=== PATIENT | male | born 1990 | race Caucasian/White ===

== ENCOUNTER 2021-06-03 08:18 | Outpatient (CLI) | payer OTHER, SELFPAY ==
--- NOTE | 2021-06-03 11:46 | WPDNEUROLOGY ---
Neurology EEG Report General Information Date of Study: 06/03/21 TEST eeg DIAGNOSIS Seizures CONDITION OF RECORDING awake drowsy and sleep EEG NUMBER [id number] CLINICAL HISTORY patient reported a couple of weeks ago his face began twitching and then lost consciousness. Denies any previous history of losing consciousness. Denies loss of bladder or bowel control. EEG DESCRIPTION basic resting occipital frequency consists of low-voltage 8 to 10 hertz per 2nd alpha admixed with large amount of low-voltage 15 to 18 hertz per 2nd beta. During drowsiness low-voltage beta activity seen diffusely admixed with waxing and waning posterior alpha rhythm. Bilateral symmetrical sleep activity seen during sleep. Photic stimulation produced poor drive. Hyperventilation not done. Non paroxysmal. Nonfocal. Nonlateralizing. IMPRESSION No significant abnormalities noted
== END 2021-06-03 08:19 | disposition home or self-care (01) ==
PROVIDERS: PCP Family Medicine
DX: R56.9 Unspecified convulsions (principal)
CPT/HCPCS: 95816

== ENCOUNTER 2024-01-19 18:17 | Inpatient (IN) | payer OTHER, SELFPAY ==
[2024-01-19] VITALS (19 sets, daily range): BP systolic 96–139; BP diastolic 56–90; PULSE 98–140; RESP 14–34; TEMP 37.3–40.5; O2SAT 89–100; BMI 31.7
--- NOTE | ~2024-01-19 | CT_ITS ---
CT brain wo con Ordering provider: Julio Hurt MD History: 33 years Male with . seizure/cardiac arrest, r/o bleed . Comparison: None. Technique: CT of the head without contrast. Radiation reduction technique utilized. DLP 908 mGy. FINDINGS: Motion and beam hardening Artifacts are seen in the posterior fossa area BRAIN PARENCHYMA AND CSF SPACES: No midline shift, mass effect or hemorrhage. The brain parenchyma a nd CSF spaces are otherwise normal. VISUALIZED PARANASAL SINUSES: Well aerated. MASTOIDS: Well aerated. BONES: The bones appear intact. SOFT TISSUES: Visualized nasopharynx is normal. Superficial soft tissues are normal. IMPRESSION: No acute intracranial findings. Reviewed, dictated and finalized at location A.
--- NOTE | ~2024-01-19 | XR_ITS ---
XR chest ET placement Ordering provider: Julio Hurt MD History: 33 years Male with . ET/OG . Comparison: None. FINDINGS: MEDIASTINUM: The cardiac silhouette is slightly enlarged. Endotracheal tube is seen with the tip abov e the tanya by about 1.6 cm. Slight retraction advised by about 2 cm.. Congestive tristen. Nasogastric tube with the tip in the stomach is noted. LUNGS: No effusion or pneumothorax. Bilateral prominent markings with patchy opacities suggestive of pneumonia. Clinical correlation advised. Underlying pulmonary edema is not excluded. OTHER: No free air under the diaphragm. IMPRESSION: Endotracheal tube to be retracted by about 2 cm. Bilateral patchy opacities suggestive of pneumonia. Underlying pulmonary edema is not excluded. Reviewed, dictated and finalized at location A.
--- NOTE | 2024-01-19 18:27 | ED.CPR ---
HPI - CPR General Chief Complaint: Cardiac Arrest/CPR Stated Complaint: seizure, post arrest Time Seen by Provider: 01/19/24 18:26 History of Present Illness HPI narrative: Patient is a 33-year-old male who presents ER after having a cardiac arrest at home. Patient had EMS contacted by his family earlier in the day for hallucinations. At that time he is oriented x4 in refused EMS transport. apparently patient was becoming more combative at home was reaching for knives so the family called EMS again. While they were there patient they thought initially was having seizure in collapsed. Patient began code. ACLS protocol initiated. Defibrillation x1 for VFib. Patient then in PA. Return to spontaneous circulation after 8 minutes. Patient then lost pulses again just prior to arrival it Gabe. ACLS protocol started again. According family patient is an alcoholic. He had been weaning himself of alcohol. 3 days ago he drank a 5th of hard liquor. Since then he has been having shaking and vomiting. Patient had been hallucinating with at fever or outside his home today and had been becoming increasingly more agitated. Related Data Home Medications Medication Instructions Recorded Confirmed aripiprazole 20 mg tablet (Abilify) 20 mg PO QHS 06/28/21 12/27/21 sertraline 100 mg tablet 150 mg PO DAILY 06/28/21 12/27/21 bupropion HCl 150 mg 24 hr tablet, 150 mg PO DAILY 12/27/21 12/27/21 extended release levetiracetam 500 mg tablet 500 mg PO BID 12/27/21 12/27/21 (Keppra) methylphenidate HCl 20 mg tablet 20 mg PO DAILY 12/27/21 12/27/21 Allergies Allergy/AdvReac Type Severity Reaction Status Date / Time No Known Allergies Allergy Verified 12/27/21 08:39 Review of Systems Review of Systems: ROS unobtainable: Yes unobtainable due to medical condition PMFSH Past Medical History Medical History ADHD Depression with anxiety Essential (primary) hypertension Gout Family History Family History Mother Hypertension Depression Anxiety Social History Social History Smoking status: Former smoker Tobacco type: cigarettes Smoking end date: 09/06/15 Alcohol intake: current Substance use: current Substance use type: marijuana Living arrangements: alone Occupation/Education: occupation Gender identity (if verbalized by the patient): Male Exam Narrative: GENERAL: chronically ill-appearing, obese, agonal breathing without spontaneous movement. HEAD: Normocephalic, atraumatic. EYES: Pupils equal and dilated the slightly reactive to light. ENT: Mucous membranes moist. Large amount of emesis and posterior oropharynx that was suctioned out heard CHEST: Agonal respirations. Clear lungs bilaterally. HEART: Regular rate and rhythm. Normal peripheral pulses. ABDOMEN: Soft, nondistended, hepatomegaly palpated. EXTREMITIES: Bruising to lower extremities at the knees and proximal thighs. No spontaneous movements. No deformity.. left humerus IO. SKIN: Cool, dry, mottled. NEURO: GCS 3. Course Course Emergency Course: 1826: ROSC at 1819. EKG with concerns for STEMI. 1936: patient taken to the cardiac can labeler. He has been given heparin, aspirin, Tylenol. additionally I have ordered thigh min for suspicion of delirium tremens. He is receiving 2 L IV fluid bolus. Oral and IV potassium have been ordered for correction of his hypokalemia. I have updated the checker bak[employer] products as well as the hospitalist should patient remain at [facility] after his cardiac catheterization which I suspect he will. I have updated family on the nature of his illness as well as his critical lab values including the potassium, creatinine, liver function tests, and troponin. I have escorted them to the ICU waiting room. Vital Signs Vital signs: Vital Signs Oxygen Delivery Bag Valve Mask 01/19/24 18:16 Temperature 104.9 F H 01/19/24 19:30 Pulse Rate 128 H 01/19/24 19:30 Respiratory Rate 28 H 01/19/24 19:30 Blood Pressure 127/59 L 01/19/24 19:30 Pulse Oximetry 98 01/19/24 19:30 Oxygen Delivery Mechanical Ventilation 01/19/24 19:25 Fraction of Inspired Oxygen 100 01/19/24 18:20 MDM - Cardiac Arrest/CPR Lab Data 01/19/24 18:35 01/19/24 18:34 Labs: Lab Results 01/19/24 01/19/24 Range/Units 18:34 18:35 WBC 25.1 H (4.5-10.0) K/mm3 RBC 4.37 L (4.6-6.20) M/mm3 Hgb 15.7 (14.0-18.0) g/dL Hct 48.8 (42.0-52.0) % MCV 111.7 H (80-100) fl MCH 35.9 H (26-34) pg MCHC 32.2 (32-36) g/dl RDW 16.1 H (11.5-14.5) % Plt Count 146 L (150-375) k/mm3 MPV 12.9 H (7.4-10.4) fl Immature Gran % (Auto) Not Reportable Neut % (Auto) Not Reportable Lymph % (Auto) Not Reportable [place] % (Auto) Not Reportable Eos % (Auto) Not Reportable Baso % (Auto) Not Reportable Lymph # (Auto) Not Reportable [place] # (Auto) Not Reportable Eos # (Auto) Not Reportable Baso # (Auto) Not Reportable Abs Immat Gran (auto) Not Reportable Absolute Neuts (auto) Not Reportable Absolute Nucleated RBC Not Reportable Total Counted 100 Neutrophils % (Manual) 73 (46-73) % Band Neutrophils % 5 (0-6) % Lymphocytes % (Manual) 15.0 L (18-44) % Monocytes % (Manual) 5 (3-9) % Metamyelocytes % 2 % Nucleated RBC % Not Reportable Abs Neuts (Manual) 19.57 H (1.3-6.7) K/mm3 Abs Lymphs (Manual) 3.76 (1.1-4.5) K/mm3 Abs Monocytes (Manual) 1.25 H (0.1-0.90) K/mm3 Platelet Estimate Slightly decreased (Adequate) Anisocytosis 1+ Macrocytosis 2+ (NORMAL) Schistocytes None seen PT 19.5 H (11.1-14.7) Seconds INR 1.6 APTT 51.0 H (22.3-36.8) Seconds Sodium 127 L (137-145) mmol/L Potassium 2.1 L* (3.4-5.0) mmol/L Chloride 55 L (98-107) mmol/L Carbon Dioxide 12 L (22-30) mmol/L Anion Gap 60 H (4-12) mmol/L BUN 9 (9-20) mg/dL Creatinine 2.00 H (0.7-1.3) mg/dL Estim Creat Clear Calc 60 ml/min Estimated GFR 39 L (59 - ) Glucose 84 (65-110) mg/dL Calcium 7.3 L (8.4-10.2) mg/dL Magnesium 1.3 L (1.6-2.3) mg/dL Total Bilirubin 7.5 H (0.2-1.3) mg/dL AST 492 H (17-59) U/L ALT 113 H (6-50) U/L Alkaline Phosphatase 196 H (38-126) U/L Troponin I 0.113 H* (0.000-0.034) ng/mL Total Protein 8.0 (6.3-8.2) g/dL Albumin 4.9 (3.5-5.1) g/dL Triglycerides 350 H (<150) mg/dL Cholesterol 155 (0-200) mg/dL LDL Cholesterol Direct 101 mg/dL HDL Direct 21 mg/dL Ethyl Alcohol < 10 (<10) mg/dL Blood Type O Positive Antibody Screen Negative Imaging Data Radiologist's impression: ITS Impressions Chest X-Ray 01/19/24 18:46 IMPRESSION: Endotracheal tube to be retracted by about 2 cm. Bilateral patchy opacities suggestive of pneumonia. Underlying pulmonary edema is not excluded. Head CT 01/19/24 19:18 IMPRESSION: No acute intracranial findings. ECG Data EKG #1: ECG completion date: 01/19/24 EKG Interpretation: tachycardia, sinus rhythm, ST elevation, RBBB and normal QT Critical Care Time Critical Care Time Critical Care Time: Yes Total Critical Care Time: 45 Discharge Plan Discharge Clinical Impression: ST elevation (STEMI) myocardial infarction, Delirium tremens, Acute hypokalemia Patient Disposition: Still a Patient Condition: Critical
--- NOTE | 2024-01-19 18:31 | ECG_ITS ---
Test Date: 2024-01-19 18:25:04 Measurements Intervals [place] Rate: 137 P: -72 MO: 98 QRS: -58 QRSD: 147 T: 23 QT: 389 QTc: 589 Interpretive Statements sinus tachycardia versus atrial tachycardia RIGHT BUNDLE BRANCH BLOCK [120+ ms QRS DURATION, UPRIGHT V1, 40+ ms S IN I/aVL/V4/V5/V6] LEFT ANTERIOR FASCICULAR BLOCK [QRS AXIS <= -45, QR IN I, RS IN II] No previous ECG available for comparison Electronically Signed On 01-20-2024 12:59:20 CDT by Curt Ventura M.D.
[2024-01-19] MEDS: PROPOFOL IV EMULSION 200 MG/20 ML VIAL 50 MG IV PUSH (18:38)
[2024-01-19] MEDS: ASPIRIN 81 MG CHEWABLE TABLET 324 MG PO (18:38)
[2024-01-19 18:42] LABS: Hematocrit 48.8 % (42.0-52.0); Hemoglobin 15.7 g/dL (14.0-18.0); Mean Corpuscular HGB Conc 32.2 g/dl (32-36); Mean Corpuscular Hemoglobin 35.9 pg (26-34); Mean Corpuscular Volume 111.7 fl (80-100); Mean Platelet Volume 12.9 fl (7.4-10.4); Platelet Count Result 146 k/mm3 (150-375); Red Blood Count 4.37 M/mm3 (4.6-6.20); Red Cell Distribution Width 16.1 % (11.5-14.5); White Blood Count 25.1 K/mm3 (4.5-10.0)
[2024-01-19] MEDS: SODIUM CHLORIDE 0.9% IV 1,000 ML 999 ML IV CONT ×2 (18:45)
[2024-01-19] MEDS: PROPOFOL IV EMULSION 100 ML 3.18 MG IV CONT (18:45)
[2024-01-19] MEDS: ACETAMINOPHEN 650 MG SUPPOSITORY RECTAL (18:50)
[2024-01-19 18:52] LABS: INR 1.6; Prothrombin Time 19.5 Seconds (11.1-14.7)
[2024-01-19 19:00] LABS: Albumin Level 4.9 g/dL (3.5-5.1); Alkaline Phosphatase 196 U/L (38-126); Anion Gap 60 mmol/L (4-12); Aspartate Amino Transferase 492 U/L (17-59); Bilirubin,Total 7.5 mg/dL (0.2-1.3); Blood Urea Nitrogen 9 mg/dL (9-20); Calcium 7.3 mg/dL (8.4-10.2); Carbon Dioxide 12 mmol/L (22-30); Chloride 55 mmol/L (98-107); Cholesterol 155 mg/dL (0-200); Estimated CRCL calculation 60 ml/min; Estimated Glomerular Filt Rate 39; Glucose 84 mg/dL (65-110); HDL Direct 21 mg/dL; Potassium 2.1 mmol/L (3.4-5.0); Sodium 127 mmol/L (137-145); Triglycerides 350 mg/dL (<150)
[2024-01-19] MEDS: HEPARIN SODIUM 5,000 UNITS/ML VIAL 4000 UNITS IV PUSH (19:00)
[2024-01-19 19:03] LABS: LDL Cholesterol Direct 101 mg/dL
[2024-01-19 19:09] LABS: Troponin I 0.113 ng/mL (0.000-0.034)
--- NOTE | 2024-01-19 19:11 | PM.IMHP ---
H&P: HPI History of Present Illness Date/Time: Date of service 01/19/24 19:11 Chief Complaint: cardiac arrest Narrative: Patient is a 33-year-old male who presents ER after having a cardiac arrest at home. Patient had EMS contacted by his family earlier in the day for hallucinations. At that time he is oriented x4 in refused EMS transport. apparently patient was becoming more combative at home was reaching for knives so the family called EMS again. While they were there patient they thought initially was having seizure in collapsed. Patient began code. ACLS protocol initiated. Defibrillation x1 for VFib. Patient then in [place]. Return to spontaneous circulation after 8 minutes. Patient then lost pulses again just prior to arrival it Gabe. ACLS protocol started again. According family patient is an alcoholic. He had been weaning himself of alcohol. 3 days ago he drank a 5th of hard liquor. Since then he has been having shaking and vomiting. Patient had been hallucinating with at fever or outside his home today and had been becoming increasingly more agitated. He is currently intubated. EKG shows possible ST-elevation anterior leads. labs just came back and potassium 2.1, Creatinine 2, slight elevation in liver enzymes. yeah chest x-ray reviewed as myself shows patchy infiltrates. Review of Systems Review of Systems: ROS unobtainable: Yes unobtainable due to medical condition PMFSH Past Medical History Medical History Alcohol abuse Attention deficit hyperactivity disorder (ADHD) Depression with anxiety Essential (primary) hypertension Gout Polysubstance abuse Schizoaffective disorder Seizures Surgical History Surgical History No history of previous surgery Family History Family History Mother Hypertension Depression Anxiety Social History Social History Social History: Surrogate medical decision maker: Mother. Code status: Full code. Smoking status: Former smoker Tobacco type: cigarettes Smoking end date: 09/06/15 Alcohol intake: current Alcohol use details: 1/5 of hard liquor a day at least Substance use: current Substance use type: marijuana Other substance usage details: Daily cannabinoid use. Casual use of DMT, shrooms, ketamine, ecstasy, coke. Living arrangements: alone Additional living arrangements comments: The patient lives in his own home in [place]. Occupation/Education: occupation Additional occupation/education comments: Works from home. Spiritual care concerns: No Meds Home Medications and Allergies Home Medications Medication Instructions Recorded Confirmed Type hydroxyzine HCl 25 mg tablet 25 mg PO TID PRN anxiety #90 tabs 09/13/20 12/27/21 Rx amlodipine 10 mg tablet 10 mg PO DAILY #90 tabs 06/28/21 12/27/21 Rx aripiprazole 20 mg tablet (Abilify) 20 mg PO QHS 06/28/21 12/27/21 History sertraline 100 mg tablet 150 mg PO DAILY 06/28/21 12/27/21 History bupropion HCl 150 mg 24 hr tablet, 150 mg PO DAILY 12/27/21 12/27/21 History extended release levetiracetam 500 mg tablet 500 mg PO BID 12/27/21 12/27/21 History (Keppra) methylphenidate HCl 20 mg tablet 20 mg PO DAILY 12/27/21 12/27/21 History metoprolol succinate 50 mg 50 mg PO DAILY #90 tabs 03/30/22 Rx tablet,extended release 24 hr potassium chloride 20 mEq 20 meq PO DAILY #14 tabs 07/05/22 Rx tablet,extended release allopurinol 300 mg tablet 300 mg PO DAILY #90 tabs 03/16/23 Rx Allergies Allergy/AdvReac Type Severity Reaction Status Date / Time No Known Allergies Allergy Verified 12/27/21 08:39 Vital Signs Vital Signs - 24 hr 01/19/24 18:20 01/19/24 18:45 01/19/24 18:48 Temperature 39.8 C H Pulse Rate 136 H 140 H Respiratory Rate 25 H 25 H Blood Pressure 98/56 L Pulse Oximetry 100 Oxygen Delivery Mechanical Ventilation Fraction of Inspired Oxygen 100 01/19/24 19:01 Temperature Pulse Rate 138 H Respiratory Rate Blood Pressure Pulse Oximetry Oxygen Delivery Fraction of Inspired Oxygen Exam Const: General: cooperative, healthy appearing, comfortable, no acute distress, well developed and well nourished Nutritional Appearance: well nourished Orientation/consciousness: No patient oriented x3 HENMT: Head: normal to inspection, normocephalic and atraumatic Ears: hearing grossly normal bilaterally and external ears normal Face/Nose/Sinus: Normal external nose present, Normal nares present, normal facial exam and No erythema Face and sinus: normal facial exam and no erythema Mouth: Yes moist mucous membranes and No lip abnormal Eyes: General: appearance normal, both eyes and all related structures Eyelids: eyelids normal Sclera: sclerae normal Neck: Neck: normal visual inspection and full ROM Thyroid: thyroid normal Carotids: no bruits Lymphatic: lymphedema not noted Chest: Chest palpation & inspection: normal inspection of the chest and normal palpation of entire chest wall Resp: Effort & Inspection: normal respiratory effort and not labored Auscultation: clear to auscultation bilaterally, no crackles, no rales and no wheezes Cardio: Jugular venous distension: no JVD Rate: regular rate Rhythm: regular rhythm Heart sounds: S1 normal heart sound present, S2 normal heart sound present, no click, no gallops, no murmurs and no rubs Bruits: no carotid bruits GI: Inspection: normal to inspection and non-distended GI Palp: No abdominal tenderness Auscultation: normal bowel sounds Rectal Exam: deferred : General: No CVA tenderness and Yes no CVA tenderness Back/Spine/Pelvis: Back: no CVA tenderness, No CVA tenderness and No erythema Cervical Spine: cervical ROM normal Skin: General skin exam: normal color, no erythema and no pallor Lesions: no lesions Rashes: no rashes Neuro: Cranial nerves: Yes facial symmetry Other: Intubated, ventilated Extrem: General: normal to inspection and full ROM Psych: Other: unable to assess H&P: Results Labs Labs: [facility] 01/19/24 18:34 Sodium 127 L Potassium 2.1 L* Chloride 55 L Carbon Dioxide 12 L BUN 9 Creatinine 2.00 H Glucose 84 Calcium 7.3 L Cardiac Enzymes 01/19/24 Range/Units 18:34 Troponin I 0.113 H* (0.000-0.034) ng/mL Liver Function 01/19/24 Range/Units 18:34 Total Bilirubin 7.5 H (0.2-1.3) mg/dL AST 492 H (17-59) U/L Alkaline Phosphatase 196 H (38-126) U/L Albumin 4.9 (3.5-5.1) g/dL Assessment and Plan Assessment and plan (1) Cardiac arrest: Code(s): I46.9 - Cardiac arrest, cause unspecified Status: Acute Assessment and Plan: Regards to cardiac arrest, patient will be rushed to the cardiac catheterization technologist to rule out STEMI. (2) Hypokalemia: Code(s): E87.6 - Hypokalemia Status: Acute Assessment and Plan: potassium 2.1, this could be the reason for the cardiac arrest but given EKG changes will proceed for cardiac catheterization (3) Alcoholism syndrome: Code(s): F10.20 - Alcohol dependence, uncomplicated Status: Acute
[2024-01-19 19:14] LABS: Alanine Aminotransferase 113 U/L (6-50)
[2024-01-19 19:17] LABS: Ethanol < 10 mg/dL (<10)
[2024-01-19 19:20] LABS: Band Neutrophils Percent 5 % (0-6); Lymphocytes Absolute Manual 3.76 K/mm3 (1.1-4.5); Metamyelocytes Percent 2 %; Monocytes Absolute Manual 1.25 K/mm3 (0.1-0.90); Monocytes Percent Manual 5 % (3-9); Neutrophils Absolute Manual 19.57 K/mm3 (1.3-6.7); Neutrophils Percent Manual 73 % (46-73); Total Cells Counted 100
[2024-01-19 19:21] LABS: Anisocytosis 1+; Platelet Estimate Slightly Decreased (Adequate); Schistocytes None Seen
[2024-01-19 19:22] LABS: Macrocytosis 2+ (NORMAL)
--- NOTE | 2024-01-19 19:23 | WPDCARDPROC ---
Cardiac Cath Procedure Note Date of procedure:: 01/28/24 Performing physician:: Adrián Nino MD date of service 01/19/2024- Indication:: cardiac arrest possible ST-elevation Brief clinical history:: Patient is a 33-year-old male who presents ER after having a cardiac arrest at home. Patient had EMS contacted by his family earlier in the day for hallucinations. At that time he is oriented x4 in refused EMS transport. apparently patient was becoming more combative at home was reaching for knives so the family called EMS again. While they were there patient they thought initially was having seizure in collapsed. Patient began code. ACLS protocol initiated. Defibrillation x1 for VFib. Patient then in [place]. Return to spontaneous circulation after 8 minutes. Patient then lost pulses again just prior to arrival it Gabe. ACLS protocol started again. According family patient is an alcoholic. He had been weaning himself of alcohol. 3 days ago he drank a 5th of hard liquor. Since then he has been having shaking and vomiting. Patient had been hallucinating with at fever or outside his home today and had been becoming increasingly more agitated. He is currently intubated. EKG shows possible ST-elevation anterior leads. labs just came back and potassium 2.1, Creatinine 2, slight elevation in liver enzymes. yeah chest x-ray reviewed as myself shows patchy infiltrates Procedure Procedure performed:: 1-Moderate sedation that started at 7:39 p.m. and ended at 8:01 p.m. with total duration 22 minutes using dipirivan drip that was started in the emergency 2-Selective left and right coronary angiogram. 3-Left heart catheterization with measurement of LVEDP and measurement of gradient across aortic valve. 4-Right common femoral arterial angiogram. 5-Deployment of 6 Persian Angio-Seal. Sedation/Medication given:: Moderate sedation. Access site:: Right common femoral artery. Estimated blood loss:: 10cc Procedure note:: After informed consent patient was brought in to quality control lab technician with the was draped and prepped in usual manner. Moderate sedation was given and the right groin was infiltrated using 1% lidocaine. Five Persian sheath was obtained using micropuncture needle and the modified Seldinger technique. Selective left coronary angiogram was done using JL4 catheter with the tip of the catheter placed in the left main coronary artery. Selective right coronary angiogram was done using JR4 catheter with the tip of the catheter placed to the right coronary artery. After that 5 Persian pigtail catheter was advanced across the aortic valve into the left ventricle with measurement of LVEDP and measurement of gradient across aortic valve. LV angiogram was done. Right common femoral arterial angiogram was done. Findings:: 1- left coronary artery is a large artery that divides into large LAD, large circumflex artery. Left main is free of disease 2- left anterior descending artery is a large artery that runs and wraps around the apex. Free of disease 3- leftcircumflex artery is a large artery,co dominant and free of disease 4- right coronary artery is medium in caliber free of disease 5- LVEDP was 15 mm Hg and no gradient across aortic valve. 6-LV angiogram shows normal ejection fraction 65% with no wall motion abnormalities 6- opening arterial pressure was 85/67 and closing pressure was 95/70 7- right femoral artery angiogram shows no significant disease in the right common femoral artery. Assessment and Plan Assessment and plan (1) Cardiac arrest with ventricular fibrillation: Code(s): I46.9 - Cardiac arrest, cause unspecified; I49.01 - Ventricular fibrillation Status: Acute Assessment and Plan: In regards to cardiac arrest, cardiac catheterization did not show significant CAD. Serum potassium resulted as low 2.1. This severe hypokalemia could have contributed to ventricular fibrillation cardiac arrest. Will replenish potassium chloride. Discussed with ICU physician Dr. bermeo who is considering hypothermia protocol. -check serum magnesium Patient does have a history of seizure will resume seizure medications. He is known to be alcoholic and therefore alcoholic precautions with dinner while to be implemented. In regards to hypertension, blood pressure is running low side and therefore antihypertensive medications will be held at this time.
--- NOTE | 2024-01-19 19:25 | P.SEDATION_ITS ---
Moderate Sedation Note-Pt Data Patient Data Diagnosis: arrest Present Complaint: cardiac arrest Procedure to be performed/Plan: coronary angiogram Allergies Allergy/AdvReac Type Severity Reaction Status Date / Time No Known Allergies Allergy Verified 12/27/21 08:39 Home Medications Medication Instructions Recorded Confirmed Type hydroxyzine HCl 25 mg tablet 25 mg PO TID PRN anxiety #90 tabs 09/13/20 12/27/21 Rx amlodipine 10 mg tablet 10 mg PO DAILY #90 tabs 06/28/21 12/27/21 Rx aripiprazole 20 mg tablet (Abilify) 20 mg PO QHS 06/28/21 12/27/21 History sertraline 100 mg tablet 150 mg PO DAILY 06/28/21 12/27/21 History bupropion HCl 150 mg 24 hr tablet, 150 mg PO DAILY 12/27/21 12/27/21 History extended release levetiracetam 500 mg tablet 500 mg PO BID 12/27/21 12/27/21 History (Keppra) methylphenidate HCl 20 mg tablet 20 mg PO DAILY 12/27/21 12/27/21 History metoprolol succinate 50 mg 50 mg PO DAILY #90 tabs 03/30/22 Rx tablet,extended release 24 hr potassium chloride 20 mEq 20 meq PO DAILY #14 tabs 07/05/22 Rx tablet,extended release allopurinol 300 mg tablet 300 mg PO DAILY #90 tabs 03/16/23 Rx Current Medications: Active Medications Propofol (Diprivan) 100 mls @ 3.183 mls/hr IV CONT .[id number] FILI Last Admin: 01/19/24 18:45 Dose: 5 mcg/kg/min, 3.18 mls/hr Sodium Chloride (Normal Saline Iv) 1,000 mls @ 999 mls/hr IV CONT .Q1H1M STA Stop: 01/19/24 19:48 Sodium Chloride (Normal Saline Iv) 1,000 mls @ 999 mls/hr IV CONT .Q1H1M STA Stop: 01/19/24 19:48 Potassium Chloride 40 meq/ (Sodium Chloride) 520 mls @ 130 mls/hr IVPB ONCE STA Stop: 01/19/24 23:01 Sedation/Anesthesia: No previous sedation/anesthesia problems (including family history). REPLACED BY [facility] Past Medical History Medical History ADHD Depression with anxiety Essential (primary) hypertension Gout Family History Family History Mother Hypertension Depression Anxiety Social History Social History Smoking status: Former smoker Tobacco type: cigarettes Smoking end date: 09/06/15 Alcohol intake: current Substance use: current Substance use type: marijuana Living arrangements: alone Occupation/Education: occupation Gender identity (if verbalized by the patient): Male Mod Sed Physical Exam Physical Exam Pre Procedural Exam: Normal: Eyes, Ears, Nose, Neck, Throat, Airway ( endotracheal tube), Lungs, Heart Size, Heart Rate, Heart Rhythm, Neuro Exam, Abdomen, Liver, Kidneys, Spleen, Breasts, Genitalia, Extremities and Skin ( several bruises) and Variation: Appearance ( intubated), Airway ( endotracheal tube) and Skin ( several bruises) Hours since solid foods: 8 Hours since liquid intake: 8 Mallampati Classification: class 1 Internal Medicine - PN: Obj Da Vital Signs Vital Signs: Vital Signs - 24 hr 01/19/24 18:20 01/19/24 18:45 01/19/24 18:48 Temperature 39.8 C H Pulse Rate 136 H 140 H Respiratory Rate 25 H 25 H Blood Pressure 98/56 L Pulse Oximetry 100 Oxygen Delivery Mechanical Ventilation Fraction of Inspired Oxygen 100 01/19/24 19:01 Temperature Pulse Rate 138 H Respiratory Rate Blood Pressure Pulse Oximetry Oxygen Delivery Fraction of Inspired Oxygen Meds/Results Medications: Active Medications Generic Name Dose Route Start Last Admin Trade Name Freq PRN Reason Stop Dose Admin Propofol 100 mls @ 3.183 mls/hr 01/19/24 18:35 01/19/24 18:45 Diprivan IV CONT 5 mcg/kg/min .[id number] FILI 3.18 mls/hr Administration 5 MCG/KG/MIN Sodium Chloride 1,000 mls @ 999 mls/hr 01/19/24 18:48 Normal Saline Iv IV CONT 01/19/24 19:48 .Q1H1M STA Sodium Chloride 1,000 mls @ 999 mls/hr 01/19/24 18:48 Normal Saline Iv IV CONT 01/19/24 19:48 .Q1H1M STA Potassium Chloride 40 meq/ 520 mls @ 130 mls/hr 01/19/24 19:02 Sodium Chloride IVPB 01/19/24 23:01 ONCE STA Radiology Results: ITS Impressions Chest X-Ray 01/19/24 18:46 IMPRESSION: Endotracheal tube to be retracted by about 2 cm. Bilateral patchy opacities suggestive of pneumonia. Underlying pulmonary edema is not excluded. Labs 01/19/24 18:35 01/19/24 18:34 Labs: Laboratory Results - last 24 hr 01/19/24 01/19/24 18:34 18:35 WBC 25.1 H RBC 4.37 L Hgb 15.7 Hct 48.8 MCV 111.7 H MCH 35.9 H MCHC 32.2 RDW 16.1 H Plt Count 146 L MPV 12.9 H Immature Gran % (Auto) Not Reportable Neut % (Auto) Not Reportable Lymph % (Auto) Not Reportable [place] % (Auto) Not Reportable Eos % (Auto) Not Reportable Baso % (Auto) Not Reportable Lymph # (Auto) Not Reportable [place] # (Auto) Not Reportable Eos # (Auto) Not Reportable Baso # (Auto) Not Reportable Abs Immat Gran (auto) Not Reportable Absolute Neuts (auto) Not Reportable Absolute Nucleated RBC Not Reportable Total Counted 100 Neutrophils % (Manual) 73 Band Neutrophils % 5 Lymphocytes % (Manual) 15.0 L Monocytes % (Manual) 5 Metamyelocytes % 2 Nucleated RBC % Not Reportable Abs Neuts (Manual) 19.57 H Abs Lymphs (Manual) 3.76 Abs Monocytes (Manual) 1.25 H Platelet Estimate Slightly decreased Anisocytosis 1+ Macrocytosis 2+ Schistocytes None seen PT 19.5 H INR 1.6 APTT 51.0 H Sodium 127 L Potassium 2.1 L* Chloride 55 L Carbon Dioxide 12 L Anion Gap 60 H BUN 9 Creatinine 2.00 H Estim Creat Clear Calc 60 Estimated GFR 39 L Glucose 84 Calcium 7.3 L Total Bilirubin 7.5 H AST 492 H ALT 113 H Alkaline Phosphatase 196 H Troponin I 0.113 H* Total Protein 8.0 Albumin 4.9 Triglycerides 350 H Cholesterol 155 LDL Cholesterol Direct 101 HDL Direct 21 Ethyl Alcohol < 10 Blood Type O Positive ASA Classification/Sedation ASA Classification/Sedation ASA Class: I Emergent: No Risks: Risks, benefits and alternatives explained and patient/family accepted plan for sedation. Patient re-evaluated immediately prior to sedation.
[2024-01-19 20:24] LABS: Magnesium 1.3 mg/dL (1.6-2.3)
[2024-01-19] MEDS: POTASSIUM CHLORIDE 20 MEQ PACKET (FOR LIQUID) 40 MEQ FEED TUBE (20:50)
[2024-01-19] MEDS: MIDAZOLAM 100MG/NS 100ML(*CRX) 100 MG/100 ML BAG IV CONT (21:00)
[2024-01-19] MEDS: FENTANYL 2,500MCG/NS250ML(*CRX 2,500 MCG/250 ML BAG IV CONT (21:00)
[2024-01-19 21:10] LABS: Fibrinogen 238 mg/dl (215-510)
--- NOTE | 2024-01-19 21:11 | P.CONS_ITS ---
Assessment and Plan Assessment and plan (1) Cardiac arrest with ventricular fibrillation: Code(s): I46.9 - Cardiac arrest, cause unspecified; I49.01 - Ventricular fibrillation Status: Acute Assessment and Plan: Patient had what sounds like an alcohol withdrawal seizure followed by cardiac arrest. According to EMS he was in ventricular fibrillation for which he was shocked x1. ROSC was achieved after 8 minutes of CPR. Several minutes thereafter he apparently lost a pulse, was in PEA, and had a ROSC with a couple of rounds of CPR. STEMI was called in the ED but coronary arteries were clear on cardiac catheterization. Etiology of the arrest may be due to significant electrolyte abnormalities noted below, secondary to substance abuse, sepsis, possible overdose, versus other. On targeted temperature management with a goal of 36? C. Echocardiogram ordered. (2) Seizures: Code(s): R56.9 - Unspecified convulsions Status: Acute Assessment and Plan: Patient has a history of seizures including alcohol withdrawal seizures. Family states he is not always compliant with his levetiracetam. Seizure today is likely precipitated by alcohol withdrawal. Serotonin syndrome is also a consideration; he has prescriptions for duloxetine, sertraline, aripiprazole, and methylphenidate. He has thus far received levetiracetam 1000 mg, phenobarbital 260 mg, and valproate 750 mg has been ordered. He continues to have intermittent myoclonus, eye fluttering, and intermittent jaw movements with concerns for status epilepticus. Transfer is being initiated for continuous EEG. (3) Electrolyte abnormality: Code(s): E87.8 - Other disorders of electrolyte and fluid balance, not elsewhere classified Status: Acute Assessment and Plan: Multiple electrolyte abnormalities were noted on labs including hypokalemia, hyp onatremia, hypochloremia, hypomagnesemia, and hypocalcemia. Electrolytes are being aggressively replaced and will be monitored closely. (4) Acute kidney injury: Code(s): N17.9 - Acute kidney failure, unspecified Status: Acute Assessment and Plan: Acute kidney injury is likely due to a combination of factors including hypoperfusion from cardiac arrest, hypovolemia from probable dehydration given his vomiting the last several days, and rhabdomyolysis related to seizure activities. Cannot rule out ATN from possible underlying sepsis as well. He received a 2 L normal saline bolus in the ED and is receiving an additional 3 L bolus. Lee catheter has been inserted for strict I/O. Renally dose all medications and avoid nephrotoxic agents. (5) Rhabdomyolysis: Code(s): M62.82 - Rhabdomyolysis Status: Acute Assessment and Plan: Related to seizure activity. Unable to start bicarbonate drip at this time given profound hypokalemia. Continue aggressive IV fluids and trend CK. (6) Lactic acidosis: Code(s): E87.20 - Acidosis, unspecified Status: Acute Assessment and Plan: Lactic acid was 21.2. Due to a combination of cardiac arrest and probable sepsis and possible poor clearance due to liver dysfunction. As above he is being aggressively hydrated. Blood pressures have been stable and he has not required vasopressors as of yet. (7) Transaminitis: Code(s): R74.01 - Elevation of levels of liver transaminase levels Status: Acute Assessment and Plan: LFTs are high and climbing, AST greater than ALT. Secondary to a combination of ongoing alcohol abuse, shock liver from cardiac arrest, and rhabdomyolysis. Right upper quadrant ultrasound ordered. Check hepatitis panel. Continue to monitor closely. (8) Bilateral pneumonia: Code(s): J18.9 - Pneumonia, unspecified organism Status: Acute Assessment and Plan: Chest x-ray shows bilateral opacities concerning for pneumonia. Possible aspiration. He has been started on cefepime and vancomycin. Send sputum for culture. (9) Alcohol withdrawal syndrome: Code(s): F10.939 - Alcohol use, unspecified with withdrawal, unspecified Status: Acute Assessment and Plan: Patient drinks at least a 5th of hard alcohol a day but has cut back significantly last several days. According to mother he is drinking ma be two hard lemonades a day. The last few days he has been showing signs of alcohol withdrawal including tremors, agitation, sweats, and vomiting. Today he was much worse with extreme paranoia and agitation. Seizure was most likely related to alcohol withdrawal. He has been started on high-dose thiamine, 500 mg q.8 hours for 9 doses. (10) Polysubstance abuse: Code(s): F19.10 - Other psychoactive substance abuse, uncomplicated Status: Acute Assessment and Plan: Patient uses cannabinoids daily and uses shrooms, ketamine, DMT, and occasionally cocaine recreationally. He used cannabinoids and shrooms last night. Mother does not believe he has used any other drugs in the last week. Urine drug screen is pending. (11) Psychiatric illness: Code(s): F99 - Mental disorder, not otherwise specified Status: Acute Assessment and Plan: The patient's mother believes he has active prescriptions for duloxetine, sertraline, aripiprazole, and methylphenidate for depression, anxiety, ADHD, and schizoaffective disorder. She does not think he would have overdosed on any of his medications. Plan Thank you for allowing us to participate in this patient's care. Please do not hesitate to contact us with any questions. [facility] Data of Consult Date/Time: 01/19/24 21:00 Requesting Physician: Adrián Nino MD Primary Care Provider: Fernando Katz MD Consult Narrative Reason for consult: Medical management Narrative: This is a 33-year-old male with history of seizures, schizoaffective disorder with paranoia, depression, anxiety, ADHD, hypertension, gout, alcohol abuse (drinks at least a 5th of hard liquor a day), and polysubstance abuse to include daily cannabinoid use as well as casual use of shrooms, dimethyltryptamine, ketamine, ecstasy, and cocaine who presented to the emergency department early this evening via EMS from home in cardiac arrest. The patient's mother, grandmother, and sister provides the following history. Over the last 5 to 6 months the patient's mother has noticed that he is suffering more from his psychiatric illnesses. He seems to be getting increasingly paranoid and more depressed. It is rare for him to leave the home and he typically only walks to the gas station to get his daily alcohol. He works from home and it is my understanding that he is still able to perform that job. Mom has been staying at his house with him frequently for support. At times the patient states that he would rather be however he has never had a suicide attempt and he tells her that he is ?too big of a pussy to do that. She does not feel as though what happened today was as a result self-harm. Last night he seemed to be doing quite well and in fact over the last 3 days he has been cutting back heavily on his alcohol and seems motivated to quit drinking. He drank only a couple of hard lemonades these last few evenings compared to his usual 5th of alcohol. He has been experiencing tremors, sweats, mild agitation, nausea, and occasional emesis but mom states this is not unusual for him when he backs off on his alcohol use. Last night he smoked marijuana and had a half of a chocolate shroom candy bar before retiring to bed. At about 08:00 when mom got up, the patient was already awake and he seemed to be very paranoid and anxious. He was convinced that there was a group of 5 teenagers in his yard who were taunting and threatening him. As the day progressed he got more and more paranoid and mom reports that he seemed to be breathing rapidly and he was very diaphoretic. She placed a call to 911 around 12:30 and requested that he be brought to [facility] for psychiatric evaluation. The patient was unwilling to go with EMS and stated he did not meet benchmark criteria for involuntary. Over the course of the next several hours he became increasingly agitated, attempting to barricade himself and his mother in the house to protect her from the individuals that he thought were outside. Eventually he grabbed some knives out of the kitchen ?for protection? and mother again called 911. He did apparently willingly go with EMS at that time. EMS reports that he was very panicky and seemed to be hallucinating on their arrival. Shortly after they left the scene, the patient had seizure activity for which he was given IM Versed. He lost a pulse within a minute and ACLS protocol was initiated. He received 2 rounds of CPR, epinephrine, and 1 shock for ventricular fibrillation with return of spontaneous circulation within about 2 minutes. Before arriving to the ER he once again lost a pulse, was in PEA, and CPR was in progress on arrival to the ED. After ROSC was achieved, an EKG showed concerns for STEMI and the recyclable materials distributor was activated. Prior to going to the recyclable materials distributor, he received IV thiamine, oral and IV potassium for hypokalemia, and a 2 L IV fluid bolus. Cardiac catheterization reportedly showed normal coronary arteries. Angio-Seal was deployed and he was brought to the ICU for further management. Since arrival to the ICU he is by to temperature to 104.9? F. He has been in a sinus tachycardia consistently. He is over breathing the ventilator with ABG showing a respiratory alkalosis (7.502/30.2/56.9/23.1). Repeat labs this evening were significant for a sodium of 124, potassium less than 2, chloride 66, carbon dioxide 27, anion gap 31, BUN 10, creatinine 2.30, glucose 31, lactic acid 21.2, calcium 6.2, magnesium 1.5, total bilirubin 7.6, AST 1113, ALT 165, alkaline phosphatase 157, total CK 5100, troponin 1.420. Brain CT on arrival showed no acute findings. Chest x-ray shows patchy bilateral opacities. He is sedated with combination of propofol, fentanyl, and midazolam. Thus far he has been given Keppra 1000 mg, phenobarbital 260 mg, and 750 mg valproic acid. He has been started on cefepime and vancomycin to cover for possible underlying pneumonia. Electrolytes are being aggressively replaced. Due to asynchrony with the ventilator, he is being started on paralytics. Calls are being placed to tertiary care facilities due to concerns for status epilepticus and the need for continuous EEG and MRI which cannot be done at this facility. In excess of 2 hours was spent in attention of this patient including multiple discussions with the baccarat dealer, lengthy discussions with the patient's family members, frequent reassessments and review of chart, and discussions with specialists at outside facilities while initiating transfer. Review of Systems Review of Systems: Unable to obtain given clinical condition. [facility] Past Medical History Medical History Alcohol abuse Attention deficit hyperactivity disorder (ADHD) Depression with anxiety Essential (primary) hypertension Gout Polysubstance abuse Schizoaffective disorder Seizures Surgical History Surgical History No history of previous surgery Family History Family History Mother Hypertension Depression Anxiety Social History Social History (Updated 01/20/24 @ 00:07 by Do Moreno PA-C) Social History: Surrogate medical decision maker: Mother. Code status: Full code. Smoking status: Former smoker Tobacco type: cigarettes Smoking end date: 09/06/15 Alcohol intake: current Alcohol use details: 1/5 of hard liquor a day at least Substance use: current Substance use type: marijuana Other substance usage details: Daily cannabinoid use. Casual use of DMT, shrooms, ketamine, ecstasy, coke. Living arrangements: alone Additional living arrangements comments: The patient lives in his own home in [place]. Occupation/Education: occupation Additional occupation/education comments: Works from home. Meds Home Medications and Allergies Home Medications Medication Instructions Recorded Confirmed Type hydroxyzine HCl 25 mg tablet 25 mg PO TID PRN anxiety #90 tabs 09/13/20 12/27/21 Rx amlodipine 10 mg tablet 10 mg PO DAILY #90 tabs 06/28/21 12/27/21 Rx aripiprazole 20 mg tablet (Abilify) 20 mg PO QHS 06/28/21 12/27/21 History sertraline 100 mg tablet 150 mg PO DAILY 06/28/21 12/27/21 History bupropion HCl 150 mg 24 hr tablet, 150 mg PO DAILY 12/27/21 12/27/21 History extended release levetiracetam 500 mg tablet 500 mg PO BID 12/27/21 12/27/21 History (Keppra) methylphenidate HCl 20 mg tablet 20 mg PO DAILY 12/27/21 12/27/21 History metoprolol succinate 50 mg 50 mg PO DAILY #90 tabs 03/30/22 Rx tablet,extended release 24 hr potassium chloride 20 mEq 20 meq PO DAILY #14 tabs 07/05/22 Rx tablet,extended release allopurinol 300 mg tablet 300 mg PO DAILY #90 tabs 03/16/23 Rx Allergies Allergy/AdvReac Type Severity Reaction Status Date / Time No Known Allergies Allergy Verified 12/27/21 08:39 Vital Signs Vital Signs - 24 hr 01/19/24 18:20 01/19/24 18:45 01/19/24 18:48 Temperature 103.6 F H Pulse Rate 136 H 140 H Respiratory Rate 25 H 25 H Blood Pressure 98/56 L Pulse Oximetry 100 Oxygen Delivery Mechanical Ventilation Fraction of Inspired Oxygen 100 01/19/24 19:01 01/19/24 18:16 01/19/24 19:25 Temperature Pulse Rate 138 H Respiratory Rate Blood Pressure Pulse Oximetry 100 Oxygen Delivery Bag Valve Mask Mechanical Ventilation Fraction of Inspired Oxygen 01/19/24 19:30 01/19/24 20:42 01/19/24 20:56 Temperature 104.9 F H Pulse Rate 128 H Respiratory Rate 28 H Blood Pressure 127/59 L Pulse Oximetry 98 100 Oxygen Delivery Mechanical Ventilation Fraction of Inspired Oxygen 100 60 Exam Narrative: General: Acutely ill-appearing male. Sedated on mechanical ventilation. 106.1 kg . BMI: 31.7. HEENT: Some abrasions on the forehead. Pupils are 5 to 6 mm and are minimally reactive. Mild scleral icterus. Injected conjunctiva on the left. Occasional roving eye movements and fluttering of the eyelids. ET and OG tubes in place. Tacky mucous membranes. Neck: Supple. No obvious JVD, thyromegaly, or lymphadenopathy. Respiratory: Intubated on mechanical ventilation. He is over breathing the ventilator with erratic breathing and occasional high peak pressures. Course, equally transmitted lung sounds heard anteriorly and at the flanks. Cardiovascular: Tachycardic with normal S1-S2. Gastrointestinal: Abdomen is soft, obese, and nondistended with hypoactive bowel sounds. Genitourinary: Lee catheter draining a small amount of dark bridger urine. Angio-Seal in the right groin is oozing blood. Femoral sheath in the left groin. Skin: Cool with slight mottling (patient is on targeted temperature management). Bruising to the lower extremities. Extremities: No cyanosis, clubbing, or edema. Radial and pedal pulses palpable. IO in the left shoulder. Neurological: Sedated on propofol, fentanyl, and midazolam. Received rocuronium for vent asynchrony. Spasticity noted in the extremities. Bilateral ankle clonus. Appears to have a gag reflex. No corneal reflex noted. Does not withdrawal to pain. Occasional roving eye movements, fluttering of the lids, and horizontal nystagmus. Observed rhythmic jerking of the jaw intermittently. Psychiatric: Unable to assess. Results Labs 01/19/24 18:35 01/19/24 21:29 Labs: Short CBC 01/19/24 Range/Units 18:35 WBC 25.1 H (4.5-10.0) K/mm3 Hgb 15.7 (14.0-18.0) g/dL Hct 48.8 (42.0-52.0) % Plt Count 146 L (150-375) k/mm3 BMP 01/19/24 18:34 Sodium 127 L Potassium 2.1 L* Chloride 55 L Carbon Dioxide 12 L BUN 9 Creatinine 2.00 H Glucose 84 Calcium 7.3 L Cardiac Enzymes 01/19/24 Range/Units 18:34 Troponin I 0.113 H* (0.000-0.034) ng/mL Liver Function 01/19/24 Range/Units 18:34 Total Bilirubin 7.5 H (0.2-1.3) mg/dL AST 492 H (17-59) U/L ALT 113 H (6-50) U/L Alkaline Phosphatase 196 H (38-126) U/L Albumin 4.9 (3.5-5.1) g/dL Imaging Chest X-Ray 01/19/24 18:46 IMPRESSION: 1. Endotracheal tube to be retracted by about 2 cm. 2. Bilateral patchy opacities suggestive of pneumonia. Underlying pulmonary edema is not excluded. Head CT 01/19/24 19:18 IMPRESSION: 1. No acute intracranial findings. ABG ABG results: 01/19/24 21:25 Puncture Site Left brachial ABG pH 7.502 H* ABG pCO2 30.2 L ABG pO2 56.9 L ABG PO2/FiO2 Ratio 0.95 ABG HCO3 23.1 ABG O2 Saturation 92.3 L ABG O2 Content 18.6 ABG Base Excess 1.0 A-a Gradient 337.7 Oxyhemoglobin 88.4 L Carboxyhemoglobin 0.5 Reduced Hemoglobin 10.8 H Total Hemoglobin 15.0 O2 Delivery Device Ventilator O2 Liters/Min Not Reportable Vent Rate 14 FiO2 60 Critical Care Time Critical Care Time: Yes Total Critical Care Time: 120 Attestation: Due to a high probability of clinically significant, life threatening deterioration, the patient required my highest level of preparedness to intervene emergently and I personally spent this critical care time directly and personally managing the patient. This critical care time included obtaining a history; examining the patient; pulse oximetry; ordering and review of studies; arranging urgent treatment with development of a management plan; evaluation of patient's response to treatment; frequent reassessment; and discussions with other providers. It was exclusive of separately billable procedures and treating other patients and teaching time. Please see Assessment and Plan section and the rest of the note for further information on patient assessment and treatment.
--- NOTE | 2024-01-19 21:19 | ECG_ITS ---
Test Date: 2024-01-19 21:19:11 Measurements Intervals [place] Rate: 113 P: -18 SD: 168 QRS: 57 QRSD: 92 T: 34 QT: 371 QTc: 510 Interpretive Statements SINUS TACHYCARDIA WITH FREQUENT VENTRICULAR PREMATURE COMPLEXES MODERATE ST DEPRESSION [0.05+ mV ST DEPRESSION] WARNING: DATA QUALITY MAY AFFECT INTERPRETATION INTERPRETATION BASED ON A DEFAULT AGE OF 40 YEARS Compared to ECG 01/19/2024 18:25:04 Ventricular premature complex(es) now present Right bundle-branch block no longer present Left anterior fascicular block no longer present Electronically Signed On 01-20-2024 13:02:22 CDT by Curt Ventura M.D.
[2024-01-19] MEDS: POTASSIUM CHLORIDE INJ 40 MEQ in SODIUM CHLORIDE 0.9% IV 500 ML 130 MEQ IVPB (21:22)
[2024-01-19] MEDS: levETIRAcetam 1000MG/NACL100ML 1,000 MG/100 ML BAG 400 MG IVPB (21:22)
[2024-01-19 21:33] LABS: Creatine Kinase 3912 U/L (55-170)
[2024-01-19] MEDS: THIAMINE HCL 200 MG/2 ML VIAL 100 MG IV PUSH (21:35)
[2024-01-19] MEDS: SODIUM CHLORIDE 0.9% IV 1,000 ML 100 ML IV CONT (21:46)
[2024-01-19] MEDS: DEXTROSE 50% 25 GM/50 ML SYRINGE IV PUSH ×3 (21:47→23:04)
[2024-01-19 21:57] LABS: Alveolar/Arterial O2 Gradient 337.7 mmHg; Carboxyhemoglobin 0.5 % THb (0-2.0); Fractional Inspired Oxygen 60 %; HCO3 ABG 23.1 mEq/l (22.0-26.0); Methemoglobin ABG 0.3 %THb (0-1.5); Oxygen Content ABG 18.6 %vol (16.0-22.0); Oxygen Saturation ABG 92.3 % (95.0-100.0); Oxyhemoglobin 88.4 % THb (90.0-100.0); PCO2 ABG 30.2 mmHg (35.0-45.0); PO2 ABG 56.9 mmHg (80.0-100.0); PO2 FiO2 Ratio Arterial Blood 0.95 %; Reduced Hemoglobin 10.8 %THb (0-5.0)
[2024-01-19] MEDS: PHENobarbitaL sodium (*CRX) 130 MG/ML VIAL 260 MG IV PUSH (21:58)
[2024-01-19 21:59] LABS: Lactic Acid Reflex 21.2 mmol/L (0.7-2.0)
[2024-01-19 21:59] LABS: Magnesium 1.5 mg/dL (1.6-2.3)
[2024-01-19 22:01] LABS: Device VENTILATOR; Site Drawn LEFT BRACHIAL; pH ABG 7.502 (7.350-7.450)
[2024-01-19 22:02] LABS: Creatine Kinase 5100 U/L (55-170)
[2024-01-19 22:02] LABS: Arterial Blood Gas PEEP 5 cmH2O; Arterial Blood Gas Tidal Volume 400 ml; Arterial Blood Gas Vent Mode CMV; Arterial Blood Gas Ventilator rate 14 /MIN
[2024-01-19] MEDS: CEFEPIME 2 GM/NS 50 ML 2 GM/50 ML BAG IVPB (22:11)
[2024-01-19 22:18] LABS: Albumin Level 3.4 g/dL (3.5-5.1); Alkaline Phosphatase 157 U/L (38-126); Anion Gap 31 mmol/L (4-12); Bilirubin,Total 7.6 mg/dL (0.2-1.3); Blood Urea Nitrogen 10 mg/dL (9-20); Calcium 6.2 mg/dL (8.4-10.2); Carbon Dioxide 27 mmol/L (22-30); Chloride 66 mmol/L (98-107); Estimated CRCL calculation 53 ml/min; Estimated Glomerular Filt Rate 33; Glucose 31 mg/dL (65-110); Potassium < 2.0 mmol/L (3.4-5.0); Sodium 124 mmol/L (137-145)
[2024-01-19 22:23] LABS: Aspartate Amino Transferase 1113 U/L (17-59)
[2024-01-19 22:28] LABS: Alanine Aminotransferase 165 U/L (6-50)
[2024-01-19] MEDS: ROCURONIUM BROMIDE 50 MG/5 ML VIAL IV PUSH (22:35)
[2024-01-19] MEDS: SODIUM CHLORIDE 0.9% IV 3,200 ML/1,000 ML BAG 999 ML IV CONT ×2 (22:37→23:49)
[2024-01-19] MEDS: MAGNESIUM SULF 2 GM/WATER 50ML 2 GM/50 ML BAG IVPB (22:37)
[2024-01-19] MEDS: VALPROATE SODIUM INJ 750 MG in DEXTROSE 5% IN WATER 50 ML 57.5 MG IVPB (22:49)
[2024-01-19 23:08] LABS: Free T4 Free Thyroxine Reflex 2.98 ng/dL (0.78-2.19)
[2024-01-19] MEDS: VANCOMYCIN 1,250 MG/NS 250 ML 1,250 MG/250 ML BAG 166.67 MG IVPB (23:47)
[2024-01-19] MEDS: DEXTROSE 10% 1,000 ML 100 ML IV CONT (23:55)
[2024-01-20] VITALS: BP 78/55; PULSE 88; PULSE 90; RESP 14; TEMP 36.9
[2024-01-20] MEDS: CALCIUM CHLORIDE 1,000 MG/10 ML SYRINGE 1000 MG IV PUSH (00:01)
[2024-01-20] MEDS: THIAMINE HCL 200 MG/2 ML VIAL 100 MG IV PUSH (00:10)
[2024-01-20 00:16] VITALS: BP 106/69; PULSE 88; RESP 14; TEMP 36.6; O2SAT 98
[2024-01-20] MEDS: KCL 40 MEQ/WATER 100 ML 100 ML 25 ML IVPB (00:16)
[2024-01-20 00:24] LABS: Glucose Point of Care 20 mg/dl (65-105)
[2024-01-20 00:24] LABS: Glucose Point of Care 214 mg/dl (65-105)
[2024-01-20 00:24] LABS: Glucose Point of Care 65 mg/dl (65-105)
[2024-01-20 00:24] LABS: Glucose Point of Care 181 mg/dl (65-105)
[2024-01-20 00:24] LABS: Glucose Point of Care 229 mg/dl (65-105)
[2024-01-20] MEDS: POTASSIUM CHLORIDE 20 MEQ PACKET (FOR LIQUID) 40 MEQ PO (00:30)
[2024-01-20 00:32] LABS: Reflex Lactic Acid Yes or No Add Lactic
[2024-01-20] MEDS: MAGNESIUM SULF 2 GM/WATER 50ML 2 GM/50 ML BAG IVPB (00:32)
[2024-01-20] MEDS: SODIUM CHLORIDE 0.9% IV 3,200 ML/1,000 ML BAG 999 ML IV CONT (00:49)
[2024-01-20 01:00] VITALS: BP 108/66; PULSE 84; RESP 16; TEMP 35.5; O2SAT 97
[2024-01-20 02:02] LABS: Lactic Acid 16.1 mmol/L (0.7-2.0)
--- NOTE | 2024-01-20 03:29 | PC.NURSE ---
The patient arrived on the floor at approx: 2030 from labeling associate, post [facility] without intervention. He was noted to be exhibiting seizure-like activity and the provider was notified. Do CONN came shortly later to evaluate the patient and was in close contact with nursing, the patient, and the patient's family through the remainder of the patient's stay here. The patient was medicated and sedated and eventually required a paralytic in order to synchronize with the vent and stop the patient from bearing down due to seizure activity. A fingerstick was taken and the patient was noted to be severely hypoglycemic. (See hypoglycemia protocol documentation) Just before the paralytic was administered, and one factor precipitated it's administration, was the patient's angioseal had dislodged and patient began hemorrhaging. Luckily this event was witnessed and nursing was able to apply pressure to the site (initially done by the charge attendant, then house player, then myself). After 30 minutes of pressure being applied with other RNs helping to administer care during this time, the patient began bleeding again within a few minutes. Another 30 minutes of pressure was applied and hemostasis was achieved at approximately 2305. During this time Do, along with the an employee sponsor or advocate and and sheet ironworker, made the decision to transfer the patient for status epilepticus to a higher level of care. Report was called to Arun CARUSO at [facility] once a bed had been assigned and [facility] was notified of need for transport. When [facility] arrived, the patient was prepped for transport. Patient transported to [facility] ICU room 9403. All critical labs were relayed to Do in real time, or shortly after being received. Myself and Do had multiple conferences with the patient's family regarding the patient's history, medications, lifestyle, current condition, and code status. The patient regularly required the attention of more than one RN throughout his stay here in order to stabilize him. Any high alert meds were under direct scrutiny of multiple RNs as per policy.
--- NOTE | 2024-01-20 03:54 | ADMGEN ---
At approximately 2030 on 01/19/2024, This patient, Julián Stafford, was admitted to Intensive Care Unit-2. Patient/family oriented to hospital policies and general routines including ID bracelet, bed and alarms, visiting hours, pain management, procedures, bathroom and other care routines, personal items, smoking policy, room service/diet, and visiting hours. Information on how to activate the Rapid Response Team has been discussed. Patient/Family are encouraged to report perceived risks to care and to ask questions if they do not understand what they are told or what they should do.
[2024-01-20 04:19] LABS: Glucose Point of Care 120 mg/dl (65-105)
--- NOTE | 2024-01-20 05:23 | PC.NURSE ---
After 1 a.m. the java application developer ignition expert was called X 2 due to an issue with the failed angioseal, and concerns brought up by the receiving physician. Do went in to evaluate the groin site visually, with ultrasound, and by palpation. After speaking with the ignition expert about her findings she again spoke with the receiving physician who then accepted the patient for transfer.
[2024-01-23 14:56] LABS: Glucose Point of Care 201 mg/dl (65-105)
--- NOTE | 2024-01-29 13:52 | PM.TDS ---
Transfer Discharge Sum: Prov Provider Date of admission: 01/19/24 19:18 Primary care physician: Fernando Katz MD Admitting clinician: Adrián Nino MD Discharging clinician: Do Moreno Anticipated date of transfer: 01/20/24 Receiving physician/facility: [facility] DS: Admitting Diagnosis Discharge Date 01/20/24 Admitting Diagnosis Cardiac arrest Hypokalemia Alcoholism syndrome DS: Discharge Diagnosis Discharge Diagnosis (1) Cardiac arrest with ventricular fibrillation: Code(s): I46.9 - Cardiac arrest, cause unspecified; I49.01 - Ventricular fibrillation Status: Acute (2) Seizures: Code(s): R56.9 - Unspecified convulsions Status: Acute (3) Electrolyte abnormality: Code(s): E87.8 - Other disorders of electrolyte and fluid balance, not elsewhere classified Status: Acute (4) Acute kidney injury: Code(s): N17.9 - Acute kidney failure, unspecified Status: Acute (5) Rhabdomyolysis: Code(s): M62.82 - Rhabdomyolysis Status: Acute (6) Lactic acidosis: Code(s): E87.20 - Acidosis, unspecified Status: Acute (7) Transaminitis: Code(s): R74.01 - Elevation of levels of liver transaminase levels Status: Acute (8) Bilateral pneumonia: Code(s): J18.9 - Pneumonia, unspecified organism Status: Acute (9) Alcohol withdrawal syndrome: Code(s): F10.939 - Alcohol use, unspecified with withdrawal, unspecified Status: Acute (10) Polysubstance abuse: Code(s): F19.10 - Other psychoactive substance abuse, uncomplicated Status: Acute (11) Psychiatric illness: Code(s): F99 - Mental disorder, not otherwise specified Status: Acute Plan See consultation note. Transfer Discharge Sum: Med Medications Active and Home Medications: Home Medications hydroxyzine HCl 25 mg tablet 25 mg PO TID PRN anxiety #90 tabs 09/13/20 [Rx Confirmed 12/27/21] amlodipine 10 mg tablet 10 mg PO DAILY #90 tabs 06/28/21 [Rx Confirmed 12/27/21] aripiprazole 20 mg tablet (Abilify) 20 mg PO QHS 06/28/21 [History Confirmed 12/27/21] sertraline 100 mg tablet 150 mg PO DAILY 06/28/21 [History Confirmed 12/27/21] bupropion HCl 150 mg 24 hr tablet, extended release 150 mg PO DAILY 12/27/21 [History Confirmed 12/27/21] levetiracetam 500 mg tablet (Keppra) 500 mg PO BID 12/27/21 [History Confirmed 12/27/21] methylphenidate HCl 20 mg tablet 20 mg PO DAILY 12/27/21 [History Confirmed 12/27/21] metoprolol succinate 50 mg tablet,extended release 24 hr 50 mg PO DAILY #90 tabs 03/30/22 [Rx] potassium chloride 20 mEq tablet,extended release 20 meq PO DAILY #14 tabs 07/05/22 [Rx] allopurinol 300 mg tablet 300 mg PO DAILY #90 tabs 03/16/23 [Rx] Transfer Discharge Sum: Hosp Hospital Course Hospital course: A 33-year-old male with history of seizures, schizoaffective disorder with paranoia, depression, anxiety, ADHD, hypertension, gout, alcohol abuse, and polysubstance abuse presented to the emergency department and cardiac arrest following a possible alcohol withdrawal seizure. He was stabilized in the emergency department taken to the microbiology laboratory manager which reportedly revealed normal coronary arteries. He was brought to the ICU thereafter in critical condition with several medical problems including and acute kidney injury, rhabdomyolysis, multiple electrolyte abnormalities, lactic acidosis, bilateral pneumonia suspected to be related to aspiration, alcohol withdrawal, and concerns for ongoing seizures. He was started on IV fluid rehydration and electrolytes were aggressively replaced. Broad-spectrum antibiotics to include cefepime and vancomycin were started to cover for possible underlying pneumonia. He was loaded with levetiracetam and received phenobarbital and valproic acid for seizure activity despite adequate sedation with propofol, fentanyl, and midazolam. Transfer was initiated to [place] for higher level of care to include continuous EEG which cannot be done at this facility. The patient's case was discussed at length through numerous phone calls with the assistant banquet manager Dr. Dick and the accepting follow at [place] Dr. Luis. Time Spent with Patient Time attestation: Total time spent providing and/or coordinating transfer services: 120 minutes Total time spent: Greater than 30 minutes Exam Narrative: The patient was acutely ill in appearance, sedated on mechanical ventilation with ET and OG tubes in place. Frequent horizontal nystagmus and intermittent eye fluttering was noted. Breathing was erratic and he was over breathing the ventilator. Continuously in a sinus tachycardia though heart rate did improve with aggressive IV fluids. Abdomen was obese with hypoactive bowel sounds. Lee catheter drained only a small amount of bridger urine. Femoral sheath noted in left groin which was used as a central line, okayed by the launch steward. Angio-Seal became dislodged and pressure was held for an extended period of time to achieve hemostases. Cath site was evaluated with ultrasound thereafter and the groin was soft without obvious evidence of ongoing bleeding or pseudoaneurysm. Skin was mottled. Patient was on targeted temperature management. Scattered bruising noted to the lower extremities. Extremities were rigid with nearly continuous bilateral ankle clonus. No coronary or reflux was noted. Unclear patient had a gag reflex or if his movements were related to seizure activity. Occasional rhythmic jerking was noted of the jaw. DS: Data Data Completed and Pending Completed studies during hospitalization: Short CBC 01/19/24 Range/Units 18:35 WBC 25.1 H (4.5-10.0) K/mm3 Hgb 15.7 (14.0-18.0) g/dL Hct 48.8 (42.0-52.0) % Plt Count 146 L (150-375) k/mm3 BMP 01/19/24 18:34 Sodium 127 L Potassium 2.1 L* Chloride 55 L Carbon Dioxide 12 L BUN 9 Creatinine 2.00 H Glucose 84 Calcium 7.3 L Cardiac Enzymes 01/19/24 Range/Units 18:34 Troponin I 0.113 H* (0.000-0.034) ng/mL Liver Function 01/19/24 Range/Units 18:34 Total Bilirubin 7.5 H (0.2-1.3) mg/dL AST 492 H (17-59) U/L ALT 113 H (6-50) U/L Alkaline Phosphatase 196 H (38-126) U/L Albumin 4.9 (3.5-5.1) g/dL Imaging Chest X-Ray 01/19/24 18:46 IMPRESSION: 1. Endotracheal tube to be retracted by about 2 cm. 2. Bilateral patchy opacities suggestive of pneumonia. Underlying pulmonary edema is not excluded. Head CT 01/19/24 19:18 IMPRESSION: 1. No acute intracranial findings. ABG ABG results: 01/19/24 21:25 Puncture Site Left brachial ABG pH 7.502 H* ABG pCO2 30.2 L ABG pO2 56.9 L ABG PO2/FiO2 Ratio 0.95 ABG HCO3 23.1 ABG O2 Saturation 92.3 L ABG O2 Content 18.6 ABG Base Excess 1.0 A-a Gradient 337.7 Oxyhemoglobin 88.4 L Carboxyhemoglobin 0.5 Reduced Hemoglobin 10.8 H Total Hemoglobin 15.0 O2 Delivery Device Ventilator O2 Liters/Min Not Reportable Vent Rate 14 FiO2 60
== END 2024-01-20 02:02 | disposition short-term general hospital (02) | DRG 280 ==
LOC: ANHED 18:28 → ANHICU 19:21
PROVIDERS: Internal Medicine; Physician Assistant; Admitting Provider Internal Medicine Cardiovascular Disease; Emergency Provider Emergency Medicine; PCP Family Medicine; Visit Provider Internal Medicine Cardiovascular Disease
PROC: 4A023N7 Measurement of Cardiac Sampling and Pressure, Left Heart, Percutaneous Approach (ICD-10-PCS; CPT 93452; principal; 2024-01-19 19:00)
PROC: 4A023N7 Measurement of Cardiac Sampling and Pressure, Left Heart, Percutaneous Approach (ICD-10-PCS; 2024-01-19 19:00)
DX: I49.01 Ventricular fibrillation (principal); A41.9 Sepsis, unspecified organism; I21.3 ST elevation (STEMI) myocardial infarction of unspecified site; J69.0 Pneumonitis due to inhalation of food and vomit; K72.00 Acute and subacute hepatic failure without coma; J18.9 Pneumonia, unspecified organism; F10.231 Alcohol dependence with withdrawal delirium; G40.89 Other seizures; N17.8 Other acute kidney failure; M62.82 Rhabdomyolysis; E87.21 Acute metabolic acidosis; E87.1 Hypo-osmolality and hyponatremia; I46.8 Cardiac arrest due to other underlying condition; E87.8 Other disorders of electrolyte and fluid balance, not elsewhere classified; E83.51 Hypocalcemia; E83.42 Hypomagnesemia; E86.0 Dehydration; E87.6 Hypokalemia; F90.9 Attention-deficit hyperactivity disorder, unspecified type; F41.8 Other specified anxiety disorders; I10 Essential (primary) hypertension; E66.9 Obesity, unspecified; Z68.31 Body mass index [BMI] 31.0-31.9, adult; Z87.891 Personal history of nicotine dependence; F25.9 Schizoaffective disorder, unspecified
CPT/HCPCS: 36415; 36600; 70450; 80053; 80061; 80307; 82375; 82550; 82805; 82948; 83050; 83605; 83735; 84439; 84443; 84484; 85025; 85384; 85610; 85730; 86850; 86900; 86901; 87040; 93005; 93458; 94002; 96374; 96375; 99285; A9270; C1760; C1887; C1894; G0269; J0171; J0692; J1644; J1953; J2250; J2560; J2704; J3010; J3370; J3411; J3475; J3480; J7030; J7040